=== PATIENT | male | born 2000 | race African-American/Black ===

== ENCOUNTER 2024-03-18 15:03 | Emergency (ER) | payer MEDICAID, SELFPAY ==
[2024-03-18] MEDS ORDERED: Lidocaine 1% MPF 2 ML VIAL ONE (15:49)
[2024-03-18] MEDS ORDERED: cefTRIAXone (ROCEPHIN) 500 MG VIAL ONE (15:49)
[2024-03-18 23:12] LABS: Chlam.trachomatis by PCR,Urine Not Detected (NotDetected); GC N.gonorrhoeae PCR,UrineVOID Not Detected (NotDetected)
== END 2024-03-18 16:10 | disposition home or self-care (01) ==
LOC: ERS 15:03
DX: Z20.2 Contact with and (suspected) exposure to infections with a predominantly sexual mode of transmission (principal)
CPT/HCPCS: 87491; 87591; 96372; 99283; J0696